=== PATIENT | male | born 1945 | race Caucasian/White ===

== ENCOUNTER 2025-04-28 08:13 | Inpatient (IN) | payer OTHER ==
[~2025-04-28] VITALS: Ht 180.3 cm; Wt 85.1 kg
--- NOTE | 2025-04-28 08:38 | ED.PDOC ---
HPI Comments 80 y.o male with PMHx of HTN, DM and CAD, presents to the ED for a chief complaint of chest pain associated with SOB that started this morning upon waking up. Patient reports experiencing intermittent indigestion for a couple of weeks, noting some burning sensation to his chest however states this type of chest pain is different in nature. Patient took a couple aspiring prior to ED arrival and mentions some pain relief. He denies any fever, chills, nausea, vomiting, abdominal pain, or leg swelling. He had a full cardiac workup on December 2024 which he states all resulted normal per heavy media operator. Chief Complaint: Chest Pain Time Seen by MD: 08:22 Reviewed Notes: Nurses Notes, Medications, Allergies Allergies: Coded Allergies: NO KNOWN ALLERGIES (Unverified , 04/28/25) Information Source: Patient Mode of Arrival: Ambulatory Severity: Moderate Timing: Hours Duration: Since onset Location: Substernal Radiation: No Radiation Quality: Sharp Onset: At Rest Cardiac Risk Factors: HTN, Diabetes PE Risk Factors: None History of: None Modifying Factors: Other (asa ) Associated Signs and Symptoms: SOB Past Medical History PAST MEDICAL HISTORY: CAD, DM, HTN Surgical History: Denies all surgeries Family History Family History: Reviewed,noncontributory to illness Social History Smoker: Non-Smoker Alcohol: Denies ETOH Use Drugs: Denies Drug Use Lives In: Home Constitutional: denies: chills, diaphoresis, fatigue, fever, malaise, sweats, weakness, others EENTM: denies: blurred vision, double vision, ear bleeding, ear discharge, ear drainage, ear pain, ear ringing, eye pain, eye redness, hearing loss, mouth pain, mouth swelling, nasal discharge, nose bleeding, nose congestion, nose pain, photophobia, tearing, throat pain, throat swelling, voice changes, others Respiratory: reports: SOB at rest, shortness of breath, SOB with excertion; denies: cough, hemoptysis, orthopnea, stridor, wheezing, others Cardiovascular: reports: chest pain; denies: dizzy spells, diaphoresis, Dyspnea on exertion, edema, irregular heart beat, left arm pain, lightheadedness, palpitations, PND, syncope, others Gastrointestinal: denies: abdomen distended, abdominal pain, blood streaked bowels, constipated, diarrhea, dysphagia, difficulty swallowing, hematemesis, melena, nausea, poor appetite, poor fluid intake, rectal bleeding, rectal pain, vomiting, others Genitourinary: denies: burning, dysuria, flank pain, frequency, hematuria, incontinence, penile discharge, penile sore, pain, testicle pain, testicle swelling, urgency, others Neurological: denies: dizziness, fainting, headache, left sided numbness, left sided weakness, numbness, paresthesia, pre-existing deficit, right sided numbness, right sided weakness, seizure, speech problems, tingling, tremors, weakness, others Musculoskeletal: denies: back pain, gout, joint pain, joint swelling, muscle pain, muscle stiffness, neck pain, others Integumetry: denies: bruises, change in color, change in hair/nails, dryness, laceration, lesions, lumps, rash, wounds, others Allergic/Immunocompromised: denies: Difficulty Healing, Frequent Infections, Hives, Itching, others Hematologic/Lymphatic: denies: anemia, blood clots, easy bleeding, easy bruising, swollen glands, others Endocrine: denies: excessive hunger, excessive sweating, excessive thirst, excessive urination, flushing, intolerance to cold, intolerance to heat, unex plained weight gain, unexplained weight loss, others Psychiatric: denies: anxiety, bipolar disorder, depression, hopeless, panic disorder, schizophrenia, sleepless, suicidal, others All Other Systems: Reviewed and Negative Physical Exam General Appearance: Moderate Distress HEENT: Normal ENT Inspection, Pharynx Normal, TMs Normal Neck: Full Range of Motion, Non-Tender, Normal, Normal Inspection Respiratory: Chest Non-Tender, Lungs Clear, No Accessory Muscle Use, No Respiratory Distress, Normal Breath Sounds Cardiovascular: No Edema, No JVD, No Murmur, No Gallop, Normal Peripheral Pulses, Regular Rate/Rhythm Breast Exam: Deferred Gastrointestinal: No Organomegaly, Non Tender, No Pulsatile Mass, Normal Bowel Sounds, Soft Genitalia: Deferred Pelvic: Deferred Rectal: Deferred Extremities: No calf tenderness, Normal capillary refill, Normal inspection, Normal range of motion, Non-tender, No pedal edema Musculoskeletal : Apperance: Normal Neurologic: Alert, certified alcohol and drug counselor II-XII nml as Tested, No Motor Deficits, Normal Affect, Normal Mood, No Sensory Deficits Cerebellar Function: Normal Reflexes: Normal Skin: Dry, Normal Color, Warm Peripheral Pulses: 3+ Radial (R), 3+ Radial (L) Lymphatic: No Adenopathy EKG EKG : Pulse Rate (adult): 65 Cardiac Rhythm: NSR Was a procedure done? Was a procedure done?: No CP Differential Dx Differential Diagnosis: A-fib, A-Flutter, Angina, Anxiety / Panic Attack, Atrial Dysrhythmia, Electrolyte Disorder, N/A Differential Diagnosis: Angina, Chest Wall Pain, Cholelithiasis, Costochondritis, Myocardial Infarction, Pericarditis, Pneumonia, Pneumothorax, Pulmonary Embolus X-Ray, Labs, Meds, VS Vital Signs Date Time Temp Pulse Resp B/P (MAP) Pulse Ox O2 Delivery O2 Flow Rate FiO2 04/28/25 13:00 73 12 147/76 (99) 96 04/28/25 10:51 62 17 127/60 (82) 95 04/28/25 09:39 134/62 04/28/25 09:04 52 04/28/25 09:00 97.4 60 18 107/60 (76) 98 97.4 04/28/25 09:00 73 04/28/25 09:00 60 04/28/25 08:39 154/95 04/28/25 08:38 65 04/28/25 08:21 65 04/28/25 08:15 97.6 69 18 154/95 98 97.6 Lab Test 04/28/25 11:20 04/28/25 09:24 04/28/25 08:25 Range/Units Troponin I High Sensitivity 12 11 13 </=54 ng/L White Blood Count 7.8 4.4-10.8 10^3/uL Red Blood Count 4.80 4.5-5.90 10^6/uL Hemoglobin 14.3 13.5-17.5 g/dL Hematocrit 40.9 L 41.0-53.0 % Mean Corpuscular Volume 85.2 80.0-100.0 fL Mean Corpuscular Hemoglobin 29.8 28.0-32.0 pg Mean Corpuscular Hemoglobin Concent 35.0 32.0-36.0 g/dL Red Cell Distribution Width 13.9 11.8-14.3 % Platelet Count 215 140-450 10^3/uL Mean Platelet Volume 9.2 6.9-10.8 fL Neutrophils (%) (Auto) 54.1 37.0-80.0 % Lymphocytes (%) (Auto) 26.6 10.0-50.0 % Monocytes (%) (Auto) 11.6 0.0-12.0 % Eosinophils (%) (Auto) 6.5 0.0-7.0 % Basophils (%) (Auto) 1.2 0.0-2.0 % Neutrophils # (Auto) 4.2 1.6-8.6 10 ^3/uL Lymphocytes # (Auto) 2.1 0.4-5.4 10 ^3/uL Monocytes # (Auto) 0.9 0-1.3 10 ^3/uL Eosinophils # (Auto) 0.5 0-0.8 10 ^3/uL Basophils # (Auto) 0.1 0-0.2 10 ^3/uL Nucleated Red Blood Cells 0.0 % Sodium Level 144 136-145 mmol/L Potassium Level 2.7 L 3.5-5.1 mmol/L Chloride Level 104 98-107 mmol/L Carbon Dioxide Level 26 20-31 mmol/L Anion Gap 14 5-15 Blood Urea Nitrogen 12 9-23 mg/dL Creatinine 1.97 H 0.700-1.30 mg/dL Glomerular Filtration Rate Calc 33 >90 mL/min BUN/Creatinine Ratio 6.1 L 10.0-20.0 Serum Glucose 138 H 74-106 mg/dL Calcium Level 10.5 H 8.7-10.4 mg/dL Current Medications Medications (Trade) Dose Ordered Sig/Osmel Route Start Time Stop Time Status Last Admin Aspirin 325 mg ONCE ONCE PO 04/28/25 08:30 04/28/25 08:31 DC 04/28/25 11:40 Nitroglycerin (Ntrostat Sublingual) 0.4 mg ONCE ONCE SL 04/28/25 08:30 04/28/25 08:31 DC 04/28/25 08:39 Potassium Bicarbonate (Klor-Con/Ef) 50 meq ONCE ONCE PO 04/28/25 10:30 04/28/25 10:31 DC 04/28/25 11:40 Patient alert. Came in because of chest pain. Ambulating. Was given aspirin. Was given nitro. EKG reviewed does not show any acute changes. Possibly will need stress test. Possibly will need echocardiogram. Continue monitoring. Potassium is low. Was given potassium. Pain-free. States that he is feeling much better. Insists on going home. No leg swelling. No shortness a breath. Was told to follow up with his primary care physician. Was told to come back if there is any problem. Time of 1ST Reevaluation: 08:33 Reevaluation 1ST: Unchanged Time of 2ND Reevaluation: 13:38 Reevaluation 2ND: Improved Patient Education/Counseling: Diagnosis, Treatment, Prognosis Family Education/Counseling: No Family Present SEPSIS Sepsis Screen Date sepsis recognized/suspect: Apr 28, 2025 Time Sepsis recognized/suspect: 815 Recent Procedure: No On Antibiotic Therapy: No Respiratory Rate >20: No Heart Rate >90: No Temp<36 C (96.8 F) or >38.3 C: No SBP <90 or MAP <65 mmHG: No New Acute Mental Status Change: No Is the patient on CPAP, BIPAP,: No Physician Orders Chest Two Views Routine (04/28/25 08:29) Electrocardigram (04/28/25 08:17) Electrocardigram (04/28/25 09:17) Electrocardigram (04/28/25 11:17) Urinalysis (04/28/25 08:17) Potassium Effervesent Tab (Klor-Con/Ef) (04/28/25 13:45) Vital Signs Date Time Temp Pulse Resp B/P (MAP) Pulse Ox O2 Delivery O2 Flow Rate FiO2 04/28/25 13:00 73 12 147/76 (99) 96 04/28/25 10:51 62 17 127/60 (82) 95 04/28/25 09:39 134/62 04/28/25 09:04 52 04/28/25 09:00 97.4 60 18 107/60 (76) 98 97.4 04/28/25 09:00 73 04/28/25 09:00 60 04/28/25 08:39 154/95 04/28/25 08:38 65 04/28/25 08:21 65 04/28/25 08:15 97.6 69 18 154/95 98 97.6 Laboratory Tests Test 04/28/25 08:25 White Blood Count 7.8 10^3/uL (4.4-10.8) Medications Medications Dose Ordered Sig/Osmel Route Start Time Stop Time Status Last Admin Dose Admin Aspirin 325 mg ONCE ONCE PO 04/28/25 08:30 04/28/25 08:31 DC 04/28/25 11:40 Nitroglycerin 0.4 mg ONCE ONCE SL 04/28/25 08:30 04/28/25 08:31 DC 04/28/25 08:39 Potassium Bicarbonate 50 meq ONCE ONCE PO 04/28/25 10:30 04/28/25 10:31 DC 04/28/25 11:40 Departure 1 Departure Time of Disposition: 08:47 Impression: Primary Impression: Pneumonitis Additional Impressions: HTN (hypertension) Qualified Codes: I10 - Essential (primary) hypertension Musculoskeletal chest pain Hypokalemia Disposition: 01 HOME / SELF CARE / HOMELESS Condition: Good e-Prescriptions Levofloxacin Hemihydrate (LEVOFLOXACIN) 500 Mg Tab 500 MG PO DAILY for 7 Days, #7 MG Prov: KATHY MAZARIEGOS MD 04/28/25 Discharged With: Self Critical Care Note Critical Care Time?: No Stability Stability form required: No Heart Score Heart Score: Heart Score Response (Comments) Value History Moderate Suspicious 1 EKG Normal 0 Age >65 2 Risk Factors >3 or Hx ASHD 2 Troponin Normal limit 0 Total 5 I personally scribed for KATHY MAZARIEGOS MD ([email or web address]) on 04/28/25 at 08:38. Electronically submitted by Estelle Church ([facility]). KATHY MAZARIEGOS MD Apr 28, 2025 08:38
[2025-04-28] MEDS: NITROGLYCERIN 0.4 MG SL TAB SL ONE (08:39)
[2025-04-28 08:41] LABS: Hematocrit 40.9 % (41.0-53.0); Hemoglobin 14.3 g/dL (13.5-17.5); Mean Corpuscular Hemoglobin 29.8 pg (28.0-32.0); Mean Corpuscular Volume 85.2 fL (80.0-100.0); Nucleated Red Blood Cells % 0.0 %
[2025-04-28 08:49] LABS: Chloride 104 mmol/L (98-107); Sodium 144 mmol/L (136-145)
[2025-04-28 08:50] LABS: Anion Gap 14 (5-15); Carbon Dioxide 26 mmol/L (20-31)
[2025-04-28 08:56] LABS: BUN/Creatinine Ratio 6.1 (10.0-20.0); Blood Urea Nitrogen 12 mg/dL (9-23)
[2025-04-28 09:00] VITALS: PULSE 60
--- NOTE | 2025-04-28 09:08 | DVH ---
XY CHEST TWO VIEWS ROUTINE CLINICAL HISTORY: CP COMPARISON: XR CHEST 2 VIEW on DOS: 11/09/24, CR CHEST 2 VIEW on DOS: 04/24/24 TECHNIQUE: Frontal and lateral view of the chest was obtained FINDINGS: Lines and Tubes: None Lungs: Right lower lobe opacity may reflect atelectasis although pneumonia not excluded. Pleura: No effusion. No pneumothorax. Cardiomediastinal contours: Unremarkable Bones: No acute osseous abnormality. IMPRESSION: 1. Right lower lobe opacity may reflect atelectasis although pneumonia not excluded.
[2025-04-28 09:11] LABS: Calcium 10.5 mg/dL (8.7-10.4); Glucose 138 mg/dL (74-106); Potassium 2.7 mmol/L (3.5-5.1)
[2025-04-28] MEDS: POTASSIUM EFFERVESENT TAB 25 MEQ PO ONE ×2 (11:40→14:48)
[2025-04-28] MEDS ORDERED: LEVO500T91 PO (13:41)
--- NOTE | 2025-04-28 14:12 | DVHHP2 ---
History of Present Illness Reason for Visit: Chest pain and weakness History of Present Illness 80 y.o male with PMHx of HTN, DM and CAD, presents to the ED for a chief complaint of chest pain associated with SOB that started this morning upon waking up. Patient reports experiencing intermittent indigestion for a couple of weeks, noting some burning sensation to his chest however states this type of chest pain is different in nature. Patient took a couple aspiring prior to ED arrival and mentions some pain relief. He denies any fever, chills, nausea, vomiting, abdominal pain, or leg swelling. He had a full cardiac workup on December 2024 which he states all resulted normal per grubber. In the ER his troponin is normal however he is noted to be severely hypokalemic. Patient had another recurrent episode of chest discomfort therefore he has been brought into the hospital for further evaluation and management. Past Medical History Diabetes mellitus type 2, hypertension, coronary artery disease Past Surgical History None significant Family History: DM, Hypertension Smoke: No ALCOHOL: occassional Lives: with Family Review of Systems Review of Systems No recent travel. No diarrhea. No nausea vomiting headache dizziness or lightheadedness. Other review of systems reviewed normal. Allergies: Coded Allergies: NO KNOWN ALLERGIES (Unverified , 04/28/25) Medications Current Medications Medications Dose Ordered Sig/Osmel Route Start Time Stop Time Status Last Admin Dose Admin Nitroglycerin 0.4 mg Q5MINP PRN SL 04/28/25 14:15 UNV Morphine Sulfate 2 mg Q30M PRN IV 04/28/25 14:15 UNV Aspirin 81 mg DAILY PO 04/29/25 10:00 UNV Exam Vital Signs Vital Signs Date Time Temp Pulse Resp B/P (MAP) Pulse Ox O2 Delivery O2 Flow Rate FiO2 04/28/25 13:00 73 12 147/76 (99) 96 04/28/25 09:00 97.4 97.4 Exam Comfortable in bed without distress. HEENT neck supple no JVD. Pupils equal round react to light. Heart regular rate and rhythm S1-S2. No murmurs. Lungs fair air movement. Chest tube will expansion. No rales or wheezes. Abdomen is soft nontender nondistended positive bowel sounds. Extremities no edema positive distal pedal pulses. Labs/Xrays Labs Test 04/28/25 11:20 04/28/25 08:25 Range/Units Troponin I High Sensitivity 12 </=54 ng/L White Blood Count 7.8 4.4-10.8 10^3/uL Red Blood Count 4.80 4.5-5.90 10^6/uL Hemoglobin 14.3 13.5-17.5 g/dL Hematocrit 40.9 L 41.0-53.0 % Mean Corpuscular Volume 85.2 80.0-100.0 fL Mean Corpuscular Hemoglobin 29.8 28.0-32.0 pg Mean Corpuscular Hemoglobin Concent 35.0 32.0-36.0 g/dL Red Cell Distribution Width 13.9 11.8-14.3 % Platelet Count 215 140-450 10^3/uL Mean Platelet Volume 9.2 6.9-10.8 fL Neutrophils (%) (Auto) 54.1 37.0-80.0 % Lymphocytes (%) (Auto) 26.6 10.0-50.0 % Monocytes (%) (Auto) 11.6 0.0-12.0 % Eosinophils (%) (Auto) 6.5 0.0-7.0 % Basophils (%) (Auto) 1.2 0.0-2.0 % Neutrophils # (Auto) 4.2 1.6-8.6 10 ^3/uL Lymphocytes # (Auto) 2.1 0.4-5.4 10 ^3/uL Monocytes # (Auto) 0.9 0-1.3 10 ^3/uL Eosinophils # (Auto) 0.5 0-0.8 10 ^3/uL Basophils # (Auto) 0.1 0-0.2 10 ^3/uL Nucleated Red Blood Cells 0.0 % Sodium Level 144 136-145 mmol/L Potassium Level 2.7 L 3.5-5.1 mmol/L Chloride Level 104 98-107 mmol/L Carbon Dioxide Level 26 20-31 mmol/L Anion Gap 14 5-15 Blood Urea Nitrogen 12 9-23 mg/dL Creatinine 1.97 H 0.700-1.30 mg/dL Glomerular Filtration Rate Calc 33 >90 mL/min BUN/Creatinine Ratio 6.1 L 10.0-20.0 Serum Glucose 138 H 74-106 mg/dL Calcium Level 10.5 H 8.7-10.4 mg/dL SEPSIS Sepsis Screen Date sepsis recognized/suspect: Apr 28, 2025 Time Sepsis recognized/suspect: 09 Recent Procedure: No On Antibiotic Therapy: No Respiratory Rate >20: No Heart Rate >90: No Temp<36 C (96.8 F) or >38.3 C: No SBP <90 or MAP <65 mmHG: No New Acute Mental Status Change: No Is the patient on CPAP, BIPAP,: No Physician Orders Chest Two Views Routine (04/28/25 08:29) Electrocardigram (04/28/25 08:17) Electrocardigram (04/28/25 09:17) Electrocardigram (04/28/25 11:17) Urinalysis (04/28/25 08:17) Admit (04/28/25 14:04) Cardiac Diet-2gna,Lofat,Lochol (04/28/25 Dinner) Consistent Carb(Ccho)Diabetes (04/28/25 Dinner) Nitroglycerin Sublingual (Ntrostat Subli (04/28/25 14:15) Morphine Sulfate Injection (04/28/25 14:15) Stat Ekg For Chest Pain (04/28/25 14:04) Notify Md Of Changes From Base (04/28/25 14:04) Mathematical Statistician For 24 Hours (04/28/25 14:04) Emergency Dysrhythmia Protocol (04/28/25 14:04) Rhythm Strips Once Every Shift (04/28/25 14:04) Oxygen By Nasal Cannula (04/28/25 14:04) Troponin-I Hs (04/29/25 06:00) Troponin-I Hs (04/28/25 17:04) Basic Metabolic Panel (04/29/25 04:00) Magnesium (04/29/25 04:00) Potassium (04/28/25 14:04) Magnesium (04/28/25 14:04) Aspirin Chewable Tablet (04/29/25 10:00) Atorvastatin (Lipitor) (04/28/25 22:00) Enoxaparin Sodium (Lovenox) (04/29/25 10:00) Ondansetron Hcl (Zofran) (04/28/25 14:15) Pantoprazole Tablet (Protonix Tablet) (04/28/25 17:00) Electrocardigram (04/29/25 04:00) Losartan Tablet (Cozaar Tablet) (04/28/25 22:00) Magnesium Oxide Tablet (Mag-Ox Tablet) (04/28/25 22:00) Vital Signs Date Time Temp Pulse Resp B/P (MAP) Pulse Ox O2 Delivery O2 Flow Rate FiO2 04/28/25 13:00 73 12 147/76 (99) 96 04/28/25 10:51 62 17 127/60 (82) 95 04/28/25 09:39 134/62 04/28/25 09:04 52 04/28/25 09:00 97.4 60 18 107/60 (76) 98 97.4 04/28/25 09:00 73 04/28/25 09:00 60 04/28/25 08:39 154/95 04/28/25 08:38 65 04/28/25 08:21 65 04/28/25 08:15 97.6 69 18 154/95 98 97.6 Laboratory Tests Test 04/28/25 08:25 White Blood Count 7.8 10^3/uL (4.4-10.8) Medications Medications Dose Ordered Sig/Osmel Route Start Time Stop Time Status Last Admin Dose Admin Aspirin 325 mg ONCE ONCE PO 04/28/25 08:30 04/28/25 08:31 DC 04/28/25 11:40 325 MG Nitroglycerin 0.4 mg ONCE ONCE SL 04/28/25 08:30 04/28/25 08:31 DC 04/28/25 08:39 0.4 MG Potassium Bicarbonate 50 meq ONCE ONCE PO 04/28/25 10:30 04/28/25 10:31 DC 04/28/25 11:40 50 MEQ Assessment/Plan Assessment/Plan We will observe him overnight on telemetry floor. Serial cardiac enzymes. Start him on proton pump inhibitor for possible GERD symptoms. Resume his home medications. Correct his hypokalemia. K and Mag levels. Supportive care and treatment. If he remains stable overnight and potassium is corrected he can be discharged home in the next 24 hours with the continued outpatient follow up with PCP/grubber. Discussed with the patient at bedside regarding care plan. Plan discussed with: Patient My Orders Orders - JESSENIA HAMMER MD Procedure Category Date Status Time Admit ADMIT 04/28/25 Transmitted 14:04 Cardiac DIET 04/28/25 Transmitted Diet-2gna,Lofat,Lochol Dinner Consistent DIET 04/28/25 Transmitted Carb(Ccho)Diabetes Dinner Nitroglycerin PHA 04/28/25 Logged Sublingual (Ntrostat 14:15 Morphine Sulfate PHA 04/28/25 Logged Injection 14:15 Stat Ekg For Chest [facility] 04/28/25 In Process Pain 14:04 Notify Of Changes [facility] 04/28/25 In Process From Base 14:04 Mathematical Statistician For [facility] 04/28/25 Transmitted 24 Hours 14:04 Emergency Dysrhythmia [facility] 04/28/25 Transmitted Protocol 14:04 Rhythm Strips Once [facility] 04/28/25 Transmitted Every Shift 14:04 Oxygen By Nasal RT 04/28/25 Transmitted Cannula 14:04 Troponin-I Hs LAB 04/29/25 Verified 06:00 Troponin-I Hs LAB 04/28/25 Logged 17:04 Basic Metabolic Panel LAB 04/29/25 Verified 04:00 Magnesium LAB 04/29/25 Verified 04:00 Potassium LAB 04/28/25 Logged 14:04 Magnesium LAB 04/28/25 Logged 14:04 Aspirin Chewable PHA 04/29/25 Logged Tablet 10:00 Atorvastatin (Lipitor) PHA 04/28/25 Logged 22:00 Enoxaparin Sodium PHA 04/29/25 Logged (Lovenox) 10:00 Ondansetron Hcl PHA 04/28/25 Logged (Zofran) 14:15 Pantoprazole Tablet PHA 04/28/25 Logged (Protonix Tablet) 17:00 Electrocardigram EKG 04/29/25 Logged 04:00 Losartan Tablet PHA 04/28/25 Verified (Cozaar Tablet) 22:00 Magnesium Oxide PHA 04/28/25 Verified Tablet (Mag-Ox Tablet) 22:00 Problem List: (1) Chest pain of unknown etiology (2) HTN (hypertension) (3) Hypokalemia JESSENIA HAMMER MD Apr 28, 2025 14:12
[2025-04-28] MEDS ORDERED: NITROGLYCERIN 0.4 MG SL TAB SL PRN (14:15)
[2025-04-28] MEDS ORDERED: ONDANSETRON HCL 4 MG/2 ML VIAL IV PRN (14:15)
[2025-04-28] MEDS ORDERED: MORPHINE SULFATE 4 MG/ML SYR/VIAL IV PRN (14:15)
[2025-04-28 14:49] LABS: Alkaline Phosphatase 66.0 U/L (46-116); Total Protein 7.0 g/dL (5.7-8.2)
[2025-04-28 14:50] LABS: Alanine Aminotransferase 49.0 U/L (7-40); Albumin 4.6 g/dL (3.2-4.8); Bilirubin, Direct 0.2 mg/dL (<0.3); Bilirubin, Total 0.7 mg/dL (0.2-1.0)
[2025-04-28 15:01] LABS: Lipase 47.0 U/L (12-53)
[2025-04-28 15:02] LABS: Urine Protein, UAD TRACE (Negative)
[2025-04-28 15:15] LABS: Magnesium 2.1 mg/dL (1.6-2.6)
[2025-04-28 15:27] LABS: Potassium 2.7 mmol/L (3.5-5.1)
[2025-04-28] MEDS: PANTOPRAZOLE 40 MG TAB PO SCH (17:07)
--- NOTE | 2025-04-28 17:28 | DVHINCON2 ---
Date of service: Apr 28, 2025 Referring Physician Marcos Reason for Consultation Chest pain History of Present Illness This is a 80 year old male with a PMH of HTN, DM and CAD who presented to the ED with a complaint of chest pain with associated with SOB that started this morning upon waking up. Patient reports experiencing intermittent indigestion for a couple of weeks, noting some burning sensation to his chest however states this type of chest pain is different in nature. Patient took a couple aspiring prior to ED arrival and mentions some relief. Patient reports having a full cardiac workup in December 2024 which he states all resulted normal per peoplesoft consultant. EKG is NSR at NSR. CBC is WNL. K 2.7, Drug Purchaser 1.97. Troponin is negative x3. EKG is NSR at 65. Allergies: Coded Allergies: NO KNOWN ALLERGIES (Unverified , 04/28/25) Home Meds Active Scripts Levofloxacin Hemihydrate (LEVOFLOXACIN) 500 Mg Tab, 500 MG PO DAILY for 7 Days, #7 MG Prov:KATHY MAZARIEGOS MD 04/28/25 Current Medications Current Medications Medications (Trade) Dose Ordered Sig/Osmel Route PRN Reason Start Time Stop Time Status Last Admin Nitroglycerin (Ntrostat Sublingual) 0.4 mg Q5MINP PRN SL FOR CHEST PAIN 04/28/25 14:15 Morphine Sulfate 2 mg Q30M PRN IV FOR CHEST PAIN 04/28/25 14:15 Aspirin 81 mg DAILY PO 04/29/25 10:00 Atorvastatin Calcium (Lipitor) 20 mg HS PO 04/28/25 22:00 Enoxaparin Sodium (Lovenox) 40 mg DAILY SC 04/29/25 10:00 Ondansetron HCl (Zofran) 4 mg Q6HPRN PRN IV NAUSEA / VOMITING 04/28/25 14:15 Pantoprazole Sodium (Protonix Tablet) 40 mg BID@0600,1700 PO 04/28/25 17:00 04/28/25 17:07 Losartan Potassium (Cozaar Tablet) 50 mg BID PO 04/28/25 22:00 Magnesium Oxide (Mag-Ox Tablet) 400 mg BID PO 04/28/25 22:00 Review of Systems Constitutional: denies: chills, diaphoresis, fatigue, fever, malaise, sweats, weakness, others EENTM: denies: blurred vision, double vision, ear bleeding, ear discharge, ear drainage, ear pain, ear ringing, eye pain, eye redness, hearing loss, mouth pain, mouth swelling, nasal discharge, nose bleeding, nose congestion, nose pain, photophobia, tearing, throat pain, throat swelling, voice changes, others Respiratory: reports: SOB at rest, shortness of breath, SOB with excertion; denies: cough, hemoptysis, orthopnea, stridor, wheezing, others Cardiovascular: reports: chest pain; denies: dizzy spells, diaphoresis, Dyspnea on exertion, edema, irregular heart beat, left arm pain, lightheadedness, palpitations, PND, syncope, others Gastrointestinal: denies: abdomen distended, abdominal pain, blood streaked bowels, constipated, diarrhea, dysphagia, difficulty swallowing, hematemesis, melena, nausea, poor appetite, poor fluid intake, rectal bleeding, rectal pain, vomiting, others Genitourinary: denies: burning, dysuria, flank pain, frequency, hematuria, incontinence, penile discharge, penile sore, pain, testicle pain, testicle swel ling, urgency, others Neurological: denies: dizziness, fainting, headache, left sided numbness, left sided weakness, numbness, paresthesia, pre-existing deficit, right sided numbness, right sided weakness, seizure, speech problems, tingling, tremors, weakness, others Musculoskeletal: denies: back pain, gout, joint pain, joint swelling, muscle pain, muscle stiffness, neck pain, others Integumetry: denies: bruises, change in color, change in hair/nails, dryness, laceration, lesions, lumps, rash, wounds, others Allergic/Immunocompromised: denies: Difficulty Healing, Frequent Infections, Hives, Itching, others Hematologic/Lymphatic: denies: anemia, blood clots, easy bleeding, easy bruising, swollen glands, others Endocrine: denies: excessive hunger, excessive sweating, excessive thirst, excessive urination, flushing, intolerance to cold, intolerance to heat, unexplained weight gain, unexplained weight loss, others Psychiatric: denies: anxiety, bipolar disorder, depression, hopeless, panic disorder, schizophrenia, sleepless, suicidal, others All Other Systems: Reviewed and Negative Vital Signs Vital Signs Date Time Temp Pulse Resp B/P (MAP) Pulse Ox O2 Delivery O2 Flow Rate FiO2 04/28/25 15:06 98.7 63 18 149/75 (99) 98 98.7 Physical Exam GENERAL: Alert and oriented x 3. No acute distress. EYES: PERRL, EOMI. Anicteric. HENT: Moist mucous membranes. LUNGS: Clear to auscultation bilaterally. CARDIOVASCULAR: Regular rate and rhythm. ABDOMEN: Soft, non-tender and non-distended. EXTREMITIES: No edema. NEUROLOGIC: No focal neurological deficits. SKIN: Warm, dry. Labs/Diagnostic Data Labs Test 04/28/25 17:00 04/28/25 14:43 04/28/25 11:20 04/28/25 09:24 Range/Units Urine Color Light-yellow Yellow Urine Clarity Clear Clear Urine pH 5.5 5.0-9.0 Urine Specific [place] 1.012 1.001-1.035 Urine Protein Trace H Negative Urine Ketones Negative Negative Urine Blood Negative Negative /uL Urine Nitrite Negative Negative Urine Bilirubin Negative Negative Urine Urobilinogen Normal Negative mg/dL Urine Leukocyte Esterase Negative Negative /uL Urine RBC 1 0 - 3 /hpf Urine Microscopic WBC 4 H 0-3 /HPF Urine Squamous Epithelial Cells None seen <5 /hpf Urine Bacteria None seen None Seen /hpf Urine Glucose Normal Normal mg/dL Potassium Level 2.7 L 3.5-5.1 mmol/L Magnesium Level 2.1 1.6-2.6 mg/dL Test 04/28/25 08:25 Range/Units White Blood Count 7.8 4.4-10.8 10^3/uL Red Blood Count 4.80 4.5-5.90 10^6/uL Hemoglobin 14.3 13.5-17.5 g/dL Hematocrit 40.9 L 41.0-53.0 % Mean Corpuscular Volume 85.2 80.0-100.0 fL Mean Corpuscular Hemoglobin 29.8 28.0-32.0 pg Mean Corpuscular Hemoglobin Concent 35.0 32.0-36.0 g/dL Red Cell Distribution Width 13.9 11.8-14.3 % Platelet Count 215 140-450 10^3/uL Mean Platelet Volume 9.2 6.9-10.8 fL Neutrophils (%) (Auto) 54.1 37.0-80.0 % Lymphocytes (%) (Auto) 26.6 10.0-50.0 % Monocytes (%) (Auto) 11.6 0.0-12.0 % Eosinophils (%) (Auto) 6.5 0.0-7.0 % Basophils (%) (Auto) 1.2 0.0-2.0 % Neutrophils # (Auto) 4.2 1.6-8.6 10 ^3/uL Lymphocytes # (Auto) 2.1 0.4-5.4 10 ^3/uL Monocytes # (Auto) 0.9 0-1.3 10 ^3/uL Eosinophils # (Auto) 0.5 0-0.8 10 ^3/uL Basophils # (Auto) 0.1 0-0.2 10 ^3/uL Nucleated Red Blood Cells 0.0 % Sodium Level 144 136-145 mmol/L Chloride Level 104 98-107 mmol/L Carbon Dioxide Level 26 20-31 mmol/L Anion Gap 14 5-15 Blood Urea Nitrogen 12 9-23 mg/dL Creatinine 1.97 H 0.700-1.30 mg/dL Glomerular Filtration Rate Calc 33 >90 mL/min BUN/Creatinine Ratio 6.1 L 10.0-20.0 Serum Glucose 138 H 74-106 mg/dL Calcium Level 10.5 H 8.7-10.4 mg/dL Total Bilirubin 0.7 0.2-1.0 mg/dL Direct Bilirubin 0.2 <0.3 mg/dL Aspartate Amino Transferase (AST) 42 H 13-40 U/L Alanine Aminotransferase (ALT) 49 H 7-40 U/L Alkaline Phosphatase 66 46-116 U/L Total Protein 7.0 5.7-8.2 g/dL Albumin 4.6 3.2-4.8 g/dL Lipase 47 12-53 U/L Assessment Chest pain. Hypertension. Hypokalemia. DM. CAD. Plan/Recommendation I agree with your ongoing assessment and care of plan. Aspirin, Lipitor. DVT and GI prophylactics. Losartan. Morphine for pain. Nitro SL. Additional plan as per the hospital course. A total of 45 minutes was spent reviewing the patient record, examining the patient, making a diagnostic and therapeutic plan, discussing this plan with medical personnel, following up on diagnostic studies and following the patient for clinical stability excluding any and all procedures. At least 50% of this time was spent in direct, [id number] contact. Plan discussed with: Patient RIGO SHAH MD Apr 28, 2025 17:28
[2025-04-28 20:04] VITALS: PULSE 71; RESP 18; O2SAT 97
[2025-04-28 21:00] VITALS: BP 135/75; PULSE 67; RESP 17; TEMP 98.3; O2SAT 97
[2025-04-28 21:34] VITALS: PULSE 67; RESP 17; O2SAT 97
[2025-04-28] MEDS ORDERED: ATORVASTATIN 20 MG TAB PO SCH (22:00)
[2025-04-28 22:07] VITALS: BP 135/75; PULSE 67; RESP 17; TEMP 98.3; O2SAT 97
[2025-04-28] MEDS ORDERED: GLIP5TAB21 PO (22:28)
[2025-04-28] MEDS ORDERED: LOSA-534 PO (22:28)
[2025-04-28] MEDS ORDERED: AMLO1TAB22 PO (22:28)
[2025-04-29] MEDS ORDERED: ATORVASTATIN 20 MG TAB ONE (00:14)
[2025-04-29] MEDS ORDERED: MAGNESIUM OXIDE 400 MG TAB ONE (00:14)
[2025-04-29] MEDS ORDERED: LOSARTAN POTASSIUM 50 MG TAB ONE (00:14)
[2025-04-29] MEDS: MAGNESIUM OXIDE 400 MG TAB PO SCH (00:19)
[2025-04-29] MEDS: LOSARTAN POTASSIUM 50 MG TAB PO SCH (00:19)
[2025-04-29] MEDS: ATORVASTATIN 20 MG TAB PO SCH (00:20)
[2025-04-29 01:00] VITALS: BP 126/61; PULSE 59; RESP 18; TEMP 98; O2SAT 94
[2025-04-29 05:00] VITALS: BP 114/67; PULSE 60; RESP 17; TEMP 98.2; O2SAT 93
[2025-04-29 07:21] LABS: Chloride 106 mmol/L (98-107); Sodium 145 mmol/L (136-145)
[2025-04-29 07:22] LABS: Anion Gap 9 (5-15); Calcium 9.2 mg/dL (8.7-10.4); Carbon Dioxide 30 mmol/L (20-31)
[2025-04-29 07:24] LABS: Potassium 3.2 mmol/L (3.5-5.1)
[2025-04-29 07:27] LABS: BUN/Creatinine Ratio 9.8 (10.0-20.0); Blood Urea Nitrogen 20 mg/dL (9-23)
[2025-04-29 07:28] LABS: Magnesium 2.1 mg/dL (1.6-2.6)
[2025-04-29 07:38] LABS: Glucose 125 mg/dL (74-106)
[2025-04-29 08:00] VITALS: RESP 16
[2025-04-29 09:00] VITALS: BP 139/81; PULSE 61; RESP 18; TEMP 96.2; O2SAT 90
[2025-04-29] MEDS: ENOXAPARIN SOD 40 MG/0.4 ML SYRINGE SC SCH (10:41)
[2025-04-29 13:00] VITALS: BP 135/76; PULSE 62; RESP 18; TEMP 97.2; O2SAT 93
[2025-04-29] MEDS ORDERED: PANT40T PO (14:11)
--- NOTE | 2025-04-29 14:12 | DVHDS2 ---
Discharge Summary Date of Admission Apr 28, 2025 at 14:04 Date of Discharge: Apr 29, 2025 Labs/Diagnostic Data: Laboratory Results Test 04/29/25 06:38 04/28/25 14:43 04/28/25 09:24 04/28/25 08:25 Sodium Level 145 mmol/L (136-145) Potassium Level 3.2 mmol/L (3.5-5.1) Chloride Level 106 mmol/L (98-107) Carbon Dioxide Level 30 mmol/L (20-31) Anion Gap 9 (5-15) Blood Urea Nitrogen 20 mg/dL (9-23) Creatinine 2.04 mg/dL (0.700-1.30) Glomerular Filtration Rate Calc 32 mL/min (>90) BUN/Creatinine Ratio 9.8 (10.0-20.0) Serum Glucose 125 mg/dL (74-106) Calcium Level 9.2 mg/dL (8.7-10.4) Magnesium Level 2.1 mg/dL (1.6-2.6) Troponin I High Sensitivity 12 ng/L (</=54) Urine Color Light-yellow (Yellow) Urine Clarity Clear (Clear) Urine pH 5.5 (5.0-9.0) Urine Specific [place] 1.012 (1.001-1.035) Urine Protein Trace (Negative) Urine Ketones Negative (Negative) Urine Blood Negative /uL (Negative) Urine Nitrite Negative (Negative) Urine Bilirubin Negative (Negative) Urine Urobilinogen Normal mg/dL (Negative) Urine Leukocyte Esterase Negative /uL (Negative) Urine RBC 1 /hpf (0 - 3) Urine Microscopic WBC 4 /HPF (0-3) Urine Squamous Epithelial Cells None seen /hpf (<5) Urine Bacteria None seen /hpf (None Seen) Urine Glucose Normal mg/dL (Normal) Thyroid Stimulating Hormone (TSH) 0.58 uIU/mL (0.55-4.78) White Blood Count 7.8 10^3/uL (4.4-10.8) Red Blood Count 4.80 10^6/uL (4.5-5.90) Hemoglobin 14.3 g/dL (13.5-17.5) Hematocrit 40.9 % (41.0-53.0) Mean Corpuscular Volume 85.2 fL (80.0-100.0) Mean Corpuscular Hemoglobin 29.8 pg (28.0-32.0) Mean Corpuscular Hemoglobin Concent 35.0 g/dL (32.0-36.0) Red Cell Distribution Width 13.9 % (11.8-14.3) Platelet Count 215 10^3/uL (140-450) Mean Platelet Volume 9.2 fL (6.9-10.8) Neutrophils (%) (Auto) 54.1 % (37.0-80.0) Lymphocytes (%) (Auto) 26.6 % (10.0-50.0) Monocytes (%) (Auto) 11.6 % (0.0-12.0) Eosinophils (%) (Auto) 6.5 % (0.0-7.0) Basophils (%) (Auto) 1.2 % (0.0-2.0) Neutrophils # (Auto) 4.2 10 ^3/uL (1.6-8.6) Lymphocytes # (Auto) 2.1 10 ^3/uL (0.4-5.4) Monocytes # (Auto) 0.9 10 ^3/uL (0-1.3) Eosinophils # (Auto) 0.5 10 ^3/uL (0-0.8) Basophils # (Auto) 0.1 10 ^3/uL (0-0.2) Nucleated Red Blood Cells 0.0 % Total Bilirubin 0.7 mg/dL (0.2-1.0) Direct Bilirubin 0.2 mg/dL (<0.3) Aspartate Amino Transferase (AST) 42 U/L (13-40) Alanine Aminotransferase (ALT) 49 U/L (7-40) Alkaline Phosphatase 66 U/L (46-116) Total Protein 7.0 g/dL (5.7-8.2) Albumin 4.6 g/dL (3.2-4.8) Lipase 47 U/L (12-53) Other Laboratory Tests 04/29/25 06:38 04/28/25 08:25 Brief Hx & Hospital Course: 80 y.o male with PMHx of HTN, DM and CAD, presents to the ED for a chief complaint of chest pain associated with SOB that started this morning upon waking up. Patient reports experiencing intermittent indigestion for a couple of weeks, noting some burning sensation to his chest however states this type of chest pain is different in nature. Patient took a couple aspiring prior to ED arrival and mentions some pain relief. He denies any fever, chills, nausea, vomiting, abdominal pain, or leg swelling. He had a full cardiac workup on December 2024 which he states all resulted normal per superintendent maintenance. In the ER his troponin is normal however he is noted to be severely hypokalemic. Patient had another recurrent episode of chest discomfort therefore he has been brought into the hospital for further evaluation and management. He is admitted and ruled out for any acute coronary ischemia with a normal cardiac enzymes. Patient's symptoms suggestive of possible guarded. Patient treated with a proton pump inhibitor and symptoms improved. Echocardiogram done did not reveal any acute pathology. Therefore it is felt he could be safely discharged home with the continued outpatient treatment with the PCP and referral to superintendent maintenance for recurrent symptoms. I have talked with the patient regarding his hospital diagnosis, treatment he received, discharge medications, discharge instructions and follow-up plan of care. He has verbalized understanding of these and agree with the care plan as outlined. Operations or Procedures - APPROVED REPORT EXAM: Two-dimensional and M-mode echocardiogram with Doppler and color Doppler. Blood Pressure: 149/75 mmHg INDICATION Chest Pain [place] RISK FACTORS Height: 5'11", Weight: 189 DIMENSIONS LVDd 3.8 (3.8-5.7cm) LA (2D) 3.4 (1.9-4.0cm) Aortic Root 4.1 (2.0- 3.7cm) LVDs 2.7 (2.5-4.0cm) LA (MM) (1.9-4.0cm) Aortic Cusp Exc 2.3 (1.5- 2.0cm) EF (%) 60.0 (55-70%) Rt. Atrium 3.2 (1.9-4.0cm) Asc. Aorta cm IVSd 1.1 (0.7-1.1cm) RV (D) (1.8-2.4cm) PWd 1.3 (0.7-1.1cm) Mitral Valve Mitral Mitral Stenosis E wave 0.62m/s MV Mean GR. mmHg A wave 0.99m/s MV Peak GR. mmHg E/A ratio 0.6 2D MVA cm2 DECEL Time 335ms PRESS 1/2 Time ms Aortic Valve Aortic Valve Aortic Stenosis V1 1.19m/s AO Mean GR. 4mmHg V2 1.39m/s AO Peak GR. 8mmHg LVOT Diameter 2.2 (1.8-2.4cm) Doppler CHRIST 3.25cm2 Pulmonic Valve V2 0.84m/s Tricuspid Valve TR Velocity 2.64m/s RVSP 36mmHg Other Information Technically limited study due to body habitus. Conclusion MILD LVH AND MILD LV DIASTOLIC DYSFUNCTION LV EF IS 65% NORMAL VALVES NORMAL RV FUNCTION BORDERLINE ELEVATION OF RVSP NO EFFUSION SIGNED BY: RIGO SHAH MD SIGNED DATE/TIME: 04/29/25 7406 Condition at Discharge: Stable Final Diagnosis/Problems List Chest pain likely GERD, gastroesophageal reflux disease, diabetes mellitus type 2, hypertension, hypokalemia Discharge Disposition: Home Discharge Instruct/Medications Diet: Consistent carbohydrate, Cardiac 2g Na,low cholest Activity: No Restrictions, As Tolerated Follow Up/Referral: Primary care physician next week for referral to Cardiology for recurrent chest pain and further management Medications: Take medications as prescribed and home medications per discharge med reconciliation list/as you were taking Scheduled Amlodipine Besylate (Amlodipine Besylate), 5 MG PO DAILY, (Reported) Glipizide (Glipizide), 5 MG PO BID, (Reported) Losartan Potassium (Losartan Potassium), 50 MG PO BID, (Reported) Pantoprazole Sodium Sesquihydr (Pantoprazole Sodium), 40 MG PO BID Discharge Statement: "Patient was advised to return to the ER or call 911 if any headaches, dizziness, shortness of breath, chest pain, abdominal pain, bleeding, fevers, or worsening of medical condition. Patient was counseled about treatment plan, medications, possible side effects, patientverbalized understanding. All questions were answered to the best of my ability. This discharge took greater then 30 minutes in planning, reviewing documentation, counseling the patient, and discussing with other team members." ASSESSMENT ASSESSMENT Assessment Chest pain likely GERD, gastroesophageal reflux disease, diabetes mellitus type 2, hypertension, hypokalemia JESSENIA HAMMER MD Apr 29, 2025 14:12
[2025-04-29] MEDS ORDERED: POTASSIUM EFFERVESENT TAB 25 MEQ PO ONE (14:15)
--- NOTE | 2025-04-29 16:36 | DVHSR ---
APPROVED REPORT EXAM: Two-dimensional and M-mode echocardiogram with Doppler and color Doppler. Blood Pressure: 149/75 mmHg INDICATION Chest Pain [place] RISK FACTORS Height: 5'11", Weight: 189 DIMENSIONS LVDd 3.8 (3.8-5.7cm) LA (2D) 3.4 (1.9-4.0cm) Aortic Root 4.1 (2.0-3.7cm) LVDs 2.7 (2.5-4.0cm) LA (MM) (1.9-4.0cm) Aortic Cusp Exc 2.3 (1.5-2.0cm) EF (%) 60.0 (55-70%) Rt. Atrium 3.2 (1.9-4.0cm) Asc. Aorta cm IVSd 1.1 (0.7-1.1cm) RV (D) (1.8-2.4cm) PWd 1.3 (0.7-1.1cm) Mitral Valve Mitral Mitral Stenosis E wave 0.62m/s MV Mean GR. mmHg A wave 0.99m/s MV Peak GR. mmHg E/A ratio 0.6 2D MVA cm2 DECEL Time 335ms PRESS 1/2 Time ms Aortic Valve Aortic Valve Aortic Stenosis V1 1.19m/s AO Mean GR. 4mmHg V2 1.39m/s AO Peak GR. 8mmHg LVOT Diameter 2.2 (1.8-2.4cm) Doppler CHRIST 3.25cm2 Pulmonic Valve V2 0.84m/s Tricuspid Valve TR Velocity 2.64m/s RVSP 36mmHg Other Information Technically limited study due to body habitus. Conclusion MILD LVH AND MILD LV DIASTOLIC DYSFUNCTION LV EF IS 65% NORMAL VALVES NORMAL RV FUNCTION BORDERLINE ELEVATION OF RVSP NO EFFUSION
--- NOTE | 2025-04-29 19:19 | DVHPN2 ---
Progress Note - Dictate Date Seen: Apr 29, 2025 Medical Necessity Reason Pt with a Central, PICC or Fol: No Subjective Patient was seen and evaluated in follow up. No overnight events. Patient complains of generalized discomfort. 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 Telemetry reviewed. vital signs Vital Sign Date Time Temp Pulse Resp B/P (MAP) Pulse Ox O2 Delivery O2 Flow Rate FiO2 04/29/25 10:00 139/81 04/29/25 09:00 96.2 61 18 90 96.2 04/29/25 08:00 Room Air* 0 21 Total Intake and Output 04/28/25 04/28/25 04/29/25 15:00 23:00 07:00 Intake Total 240 ml Output Total 200 ml Balance -200 ml 240 ml medications Current Medications Medications Dose Ordered Sig/Osmel Route Start Time Stop Time Status Last Admin Dose Admin Aspirin 81 mg DAILY PO 04/29/25 10:00 04/29/25 10:43 81 MG Enoxaparin Sodium 40 mg DAILY SC 04/29/25 10:00 04/29/25 10:41 40 MG Ondansetron HCl 4 mg Q6HPRN PRN IV 04/28/25 14:15 Pantoprazole Sodium 40 mg BID@0600,1700 PO 04/28/25 17:00 04/29/25 06:03 40 MG Losartan Potassium 50 mg BID PO 04/28/25 22:00 04/29/25 10:00 50 MG Magnesium Oxide 400 mg BID PO 04/28/25 22:00 04/29/25 10:44 400 MG Atorvastatin Calcium 20 mg HS PO 04/28/25 23:45 04/29/25 00:20 20 MG objective GENERAL: Alert and oriented x 3. No acute distress. EYES: PERRL, EOMI. Anicteric. HENT: Moist mucous membranes. LUNGS: Clear to auscultation bilaterally. CARDIOVASCULAR: Regular rate and rhythm. ABDOMEN: Soft, non-tender and non-distended. EXTREMITIES: No edema. NEUROLOGIC: No focal neurological deficits. SKIN: Warm, dry. laboratory and microbiology Laboratory Tests 04/29/25 06:38 04/28/25 08:25 Test 04/29/25 06:38 Range/Units Serum Glucose 125 H 74-106 mg/dL Problem List Chest pain. Hypertension. Hypokalemia. DM. CAD. Assessment/Plan Continued all current supportive medical care. Aspirin, Lipitor. DVT and GI prophylactics. Losartan. Morphine for pain. Nitro SL. Additional plan as per the hospital course. Plan discussed with: Patient RIGO SHAH MD Apr 29, 2025 14:46
--- NOTE | 2025-04-30 07:40 | ECG ---
[facility] Test Date: 2025-04-28 Test Time: 09:04:41 Pat Name: KONG SUN Department: [facility] ED Patient ID: [id number] Room: [facility]5T B Gender: M Card Game Operator: turner : 1945 Requested By: KATHY MAZARIEGOS Order Number: [id number] Reading MD: Lawson Zamarripa Measurements Intervals [place] Rate: 52 P: 31 IA: 209 QRS: 88 QRSD: 109 T: 15 QT: 422 QTc: 393 Interpretive Statements Sinus rhythm Borderline right axis deviation Electronically Signed On 05-03-2025 17:41:57 PST by Lawson Zamarripa Please click the below link to view image of tracing.
--- NOTE | 2025-04-30 10:08 | ECG ---
[facility] Test Date: 2025-04-28 Test Time: 08:21:26 Pat Name: KONG SUN Department: Room: [facility]5T B Gender: M Sales Marketing Director: YAJAIRA : 1945 Requested By: KATHY MAZARIEGOS Order Number: [id number] Reading MD: Lawson Zamarripa Measurements Intervals [place] Rate: 65 P: 22 NE: 210 QRS: 73 QRSD: 108 T: 26 QT: 411 QTc: 428 Interpretive Statements Sinus rhythm Baseline wander in lead(s) V6 Electronically Signed On 05-03-2025 17:29:05 PST by Lawson Zamarripa Please click the below link to view image of tracing.
== END 2025-04-29 15:50 | disposition home or self-care (01) | DRG 392 ==
LOC: ER 08:13 → OVERFLOW 14:04 → TELE-WESTW 21:30
PROVIDERS: ADMIT Hospitalist; ATTEND Hospitalist
DX: K21.9 Gastro-esophageal reflux disease without esophagitis (principal); E11.9 Type 2 diabetes mellitus without complications; I10 Essential (primary) hypertension; I25.10 Atherosclerotic heart disease of native coronary artery without angina pectoris; E87.6 Hypokalemia; J98.4 Other disorders of lung; Z82.49 Family history of ischemic heart disease and other diseases of the circulatory system; Z83.3 Family history of diabetes mellitus; Z79.899 Other long term (current) drug therapy
CPT/HCPCS: 36415; 71046; 80048; 80076; 81001; 83690; 83735; 84132; 84439; 84443; 84484; 85025; 93005; 93306; G0378